=== PATIENT | female | born 1940 | race Caucasian/White ===

== ENCOUNTER 2017-08-15 05:19 | Emergency (ER) | payer MEDICARE ==
[~2017-08-15] VITALS: Ht 160 cm; Wt 68.0 kg
[~2017-08-15 05:19] MED LIST: ADVIL200 MG PO; AMLODIPINE10 MG PO; CIPROFLOXACIN500 M1 PO; CIPROFLOXACN500 MG PO; EXFORGE1 TA1 PO; EXFORGE1 TA2; FLEXERIL5 MG PO; FUROSEMIDE40 MG PO; HYDROCO/APAP1 T12 PO; KLOR-CON 1010 ME1 PO; LASIX 40 MG TAB40 MG PO; LASIX 40 MG40 MG/TAB PO; LISINOPRIL10 MG PO; LORTAB 7.57.5 MG PO; MEDDOSEPAK PO; MEDROL4 M1 PO; MOBIC7.5 MG PO; MULTIVITAM10 PO; NEURONTIN300 MG PO; NORCO1 TA2 PO; ONDANSETRON4 MG PO; OXYCO/APAP1 TA5 PO; PERCOCET 5/325M1 TAB PO; POT CHLORIDE10 ME1 PO; PREDNISONE20 MG PO; PREDNISONE5 MG OR; PREDNISONE5 MG PO; ROCEPHIN 2 GM2 GM IV; UNISOM SLEEP50 MG PO; ZESTRIL/PRI10 MG/TAB PO
[2017-08-15] MEDS ORDERED: LISINOPRIL10 M1 PO (05:29)
[2017-08-15] MEDS ORDERED: LOPRESSOR 550 MG/TAB PO (05:29)
[2017-08-15 06:15] VITALS: BP 162/76
== END 2017-08-15 06:22 | disposition home or self-care (01) ==
LOC: ED 05:19
DX: I10 Essential (primary) hypertension (principal); F41.9 Anxiety disorder, unspecified; M19.90 Unspecified osteoarthritis, unspecified site

== ENCOUNTER 2017-09-12 01:42 | Emergency (ER) | payer MEDICARE ==
[~2017-09-12] VITALS: Ht 160 cm; Wt 60.0 kg
[~2017-09-12 01:42] MED LIST changes: +LISINOPRIL10 M1 PO; +LOPRESSOR 550 MG/TAB PO
[2017-09-12] MEDS ORDERED: AUGMENTIN875TAB PO (02:31)
[2017-09-12 03:22] VITALS: BP 177/90
== END 2017-09-12 03:23 | disposition home or self-care (01) ==
LOC: ED 01:42
DX: S61.052A Open bite of left thumb without damage to nail, initial encounter (principal); S61.452A Open bite of left hand, initial encounter; I10 Essential (primary) hypertension; M19.90 Unspecified osteoarthritis, unspecified site; W54.0XXA Bitten by dog, initial encounter; Y92.009 Unspecified place in unspecified non-institutional (private) residence as the place of occurrence of the external cause